=== PATIENT | female | born 2005 | race Caucasian/White ===

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

== ENCOUNTER 2023-06-26 20:17 | Emergency (ER) | payer OTHER, SELFPAY ==
[2023-06-26 20:22] VITALS: BP 106/62; PULSE 80; RESP 18; TEMP 36; O2SAT 100; BMI 29.3
--- NOTE | 2023-06-26 20:48 | ED.SYNCOPE ---
HPI - Syncope General Chief Complaint: Syncope Stated Complaint: LOC, facial injury Time Seen by Provider: 06/26/23 20:30 Source: patient and family Mode of arrival: Ambulatory History of Present Illness HPI narrative: 17-year-old female with no reported past medical history presents with her parents for syncopal episode that occurred prior to arrival. Patient spent some time in the hot tub and after she got out she felt lightheaded. Her parents state that she sat down and seemed lightheaded. They went to go get a glass of water but saw her slump over and fall to the ground. They state she was passed out for several seconds before waking up. Patient has an abrasion to her right cheek. She states currently she feels somewhat woozy, but otherwise denies complaints. Patient was up-to-date on vaccinations per parents at bedside. They states she is acting normally. Related Data Allergies Allergy/AdvReac Type Severity Reaction Status Date / Time No Known Drug Allergies Allergy Verified 06/26/23 20:22 Review of Systems Review of Systems Narrative: Negative except as noted above Patient History Social History Smoking Status: Never smoker Smoking Status: Never smoker Substance Use Type: does not use Exam Initial Vital Signs Initial Vital Signs: Vital Signs Temperature 96.8 F L 06/26/23 20:22 Pulse Rate 80 06/26/23 20:22 Respiratory Rate 18 06/26/23 20:22 Blood Pressure 106/62 06/26/23 20:22 Pulse Oximetry 100 06/26/23 20:22 Oxygen Delivery Method Room Air 06/26/23 20:22 Const: Awake, alert, no acute distress, nontoxic appearing HEENT: TM normal bilaterally, no montilla sign, no hemotympanum Skin: Warm, Dry, superficial abrasion right cheek, quarter-sized contusion over right eyebrow Neuro: AO x3, CN II-XII grossly intact, moves all extremities Course Orders Ordered: ED Orders 06/26/23 20:49 EKG-12 Lead Stat Vital Signs Vital signs: Vital Signs - 8 hr 06/26/23 20:22 Temperature 96.8 F L Pulse Rate 80 Respiratory Rate 18 Blood Pressure 106/62 Pulse Oximetry 100 Oxygen Delivery Method Room Air MDM - Syncope Differential Diagnosis Differential diagnosis: Likely syncope due to orthostatic hypotension, vasovagal syncope and complete atrioventricular block ECG Data Interpretation: Normal sinus rhythm at 77 beats per minute. Normal ME, normal axis, normal intervals, no ST T wave changes MDM Narrative Medical decision making narrative: Well-appearing patient with syncopal episode from seated height after spending time in the hot tub. Currently back to baseline, she does have an abrasion over her cheek bone and a small contusion on her forehead. Physical exam is unremarkable, PECARN negative. Patient up-to-date on vaccinations. EKG is sinus rhythm without concerning findings, QT prolongation, or arrhythmia. Parents reassured and wound care instructions discussed at bedside. Discharge Plan Departure Patient Disposition: Home Clinical Impression: Syncope due to orthostatic hypotension Abrasion of face Qualifiers: Encounter type: initial encounter Qualified Code(s): S00.81XA - Abrasion of other part of head, initial encounter Instructions: DI for Syncope in Adults (Fainting) Activity Restrictions/Additional Instructions: Drink plenty of fluids, get plenty of rest. For the abrasion on your cheek you may apply bacitracin ointment to keep the scabbing from becoming painful. Wear sunscreen when you go out in the sun to prevent scarring. Use Tylenol and Motrin as needed for pain and apply ice as needed for swelling. Referrals: Miscellaneous,Doctor, MD [Primary Care Provider] - Stand Alone Forms: Patient Portal/API
== END 2023-06-26 21:09 | disposition home or self-care (01) ==
PROVIDERS: Emergency Provider Emergency Medicine
DX: I95.1 Orthostatic hypotension (principal); S00.81XA Abrasion of other part of head, initial encounter; W18.30XA Fall on same level, unspecified, initial encounter
CPT/HCPCS: 93005; 93010; 99281; 99282